=== PATIENT | male | born 1980 | race African-American/Black ===

== ENCOUNTER 2017-09-14 22:36 | Emergency (ER) | payer OTHER ==
[2017-09-14 23:18] VITALS: TEMP 98.1; BMI 39.5
--- NOTE | 2017-09-15 00:59 | PDOC ---
History of Present Illness - General History Source: Patient Exam Limitations: No Limitations - History of Present Illness Initial Comments: 09/15/17 01:01 The patient is a year old male, with a significant past medical history of hypertension, who presents to the emergency department with complaint of pain and numbness to left arm since about 4PM yesterday with elevated blood pressure this morning. He states he is compliant with his daily medications. He denies chest pain, shortness of breath, headache and dizziness. He denies fever, chills, nausea, vomit, diarrhea and constipation. He denies dysuria, frequency, urgency and hematuria. Allergies: NKDA Social history: Pt denies tobacco and illicit drug use <Melissa Humphrey - Last Filed: 09/15/17 01:01> - General History Source: Patient <Wes Finnegan - Last Filed: 09/15/17 04:05> - General Chief Complaint: Blood Pressure Problem Stated Complaint: BLOOD PRESSURE PROBLEM Time Seen by Provider: 09/15/17 00:55 Past History <Melissa Humphrey - Last Filed: 09/15/17 01:01> - Past Medical History HTN: Yes - Suicide/Smoking/Psychosocial Hx Smoking History: Never smoked Have you smoked in the past 12 months: No Information on smoking cessation initiated: No Hx Alcohol Use: No Drug/Substance Use Hx: No Substance Use Type: None <Wes Finnegan - Last Filed: 09/15/17 04:05> - Past Medical History Allergies/Adverse Reactions: Allergies Allergy/AdvReac Type Severity Reaction Status Date / Time No Known Drug Allergies Allergy Verified 09/15/17 02:19 SEAFOOD Allergy Rash Uncoded 09/15/17 01:36 Home Medications: Ambulatory Orders Hydrochlorothiazide [Hctz -] 25 mg PO DAILY 05/31/14 Lisinopril [Prinivil -] 40 mg PO DAILY 05/31/14 Pnv/Iron,Carb/Om-3/FA/Fat 1 [Multivitamin with Minerals Cap] 1 each PO DAILY 10/13 Dexamethasone [Decadron] 4 mg PO DAILY #2 tablet 08/22/15 Azithromycin [Zithromax Z-VINCENT (5 DAYS) -] 250 mg PO ASDIR #6 tablet 10/28/15 Guaifenesin AC [Robitussin AC -] 10 ml PO Q6H PRN #118 ml 10/28/15 Review of Systems - Review of Systems Able to Perform ROS?: Yes Comments:: 09/15/17 01:02 CONSTITUTIONAL: Absent: fever, chills, diaphoresis, generalized weakness, malaise, loss of appetite HEENT: Absent: rhinorrhea, nasal congestion, throat pain, throat swelling, difficulty swallowing, mouth swelling, ear pain, eye pain, visual Changes CARDIOVASCULAR: (+) elevated BP. Absent: chest pain, syncope, palpitations, irregular heart rate , lightheadedness, peripheral edema RESPIRATORY: Absent: cough, shortness of breath, dyspnea with exertion, orthopnea, wheezing, stridor, hemoptysis GASTROINTESTINAL: Absent: abdominal pain, abdominal distension, nausea, vomiting, diarrhea, constipation, melena, hematochezia GENITOURINARY: Absent: dysuria, frequency, urgency, hesitancy, hematuria, flank pain, genital pain MUSCULOSKELETAL: (+) left arm pain and numbness. Absent: arthralgia, joint swelling SKIN: Absent: rash, itching, pallor HEMATOLOGIC/IMMUNOLOGIC: Absent: easy bleeding, easy bruising, lymphadenopathy, frequent infections ENDOCRINE: Absent: unexplained weight gain, unexplained weight loss, heat intolerance, cold intolerance NEUROLOGIC: Absent: headache, focal weakness or paresthesias, dizziness, unsteady gait, seizure, mental status changes, bladder or bowel incontinence PSYCHIATRIC: Absent: anxiety, depression, suicidal or homicidal ideation, hallucinations. <Melissa Humphrey - Last Filed: 09/15/17 01:01> *Physical Exam - Vital Signs Last Vital Signs Temp Pulse Resp BP Pulse Ox 98.1 F 101 H 20 164/126 97 09/14/17 23:15 09/14/17 23:15 09/14/17 23:15 09/14/17 23:15 09/14/17 23:15 - Physical Exam Comments: 09/15/17 01:02 GENERAL: (+) obese, Awake and alert. No acute distress. HEENT: Normocephalic, atraumatic. PERRLA, EOMI. No conjunctival pallor. Sclera are non- icteric. Moist mucous membranes. Oropharynx is clear. NECK: Supple. Full ROM. No JVD. Carotid pulses 2+ and symmetric, without bruits. No thyromegaly. No lymphadenopathy. CARDIOVASCULAR: Regular rate and rhythm. No murmurs, rubs, or gallops. Distal pulses are 2+ and symmetric. PULMONARY: No evidence of respiratory distress. Lungs clear to auscultation bilaterally. No wheezing, rales or rhonchi. ABDOMINAL: Soft. Non-tender. Non-distended. No rebound or guarding. No organomegaly. Normoactive bowel sounds. MUSCULOSKELETAL Normal range of motion at all joints. No bony deformities or tenderness. No CVA tenderness. EXTREMITIES: No cyanosis. No clubbing. No edema. No calf tenderness. SKIN: Warm and dry. Normal capillary refill. No rashes. No jaundice. NEUROLOGICAL: Alert, awake, appropriate. Cranial nerves 2-12 intact. Normoreflexic in the upper and lower extremities. Normal speech. Toes are down-going bilaterally. Gait is normal without ataxia. PSYCHIATRIC: Cooperative. Good eye contact. Appropriate mood and affect. <Melissa Humphrey - Last Filed: 09/15/17 01:01> - Vital Signs Last Vital Signs Temp Pulse Resp BP Pulse Ox 98.1 F 101 H 20 164/126 97 09/14/17 23:15 09/14/17 23:15 09/14/17 23:15 09/14/17 23:15 09/14/17 23:15 <Wes Finnegan - Last Filed: 09/15/17 04:05> ED Treatment Course - LABORATORY CBC & Chemistry Diagram: 09/15/17 01:31 09/15/17 01:31 <Wes Finnegan - Last Filed: 09/15/17 04:05> Medical Decision Making - Medical Decision Making 09/15/17 04:04 Dr. Finnegan: The scribe's documentation has been prepared under my direction and personally reviewed by me in its entirery. I confirm that the note above accurately reflects all work, treatment, procedures, and medical decision making performed by me. BP has improved t to 140/100. Pt feels better. Labs are stable. Pt to be discharged to follow up with his pcp. <Wes Finnegan - Last Filed: 09/15/17 04:05> *DC/Admit/Observation/Transfer - Attestations Scribe Attestion: 09/15/17 01:03 Documentation prepared by Melissa Humphrey, acting as medical records auditor for Wes Finnegan DO <Melissa Humphrey - Last Filed: 09/15/17 01:01> - Discharge Dispostion Admit: No <Wes Finnegan - Last Filed: 09/15/17 04:05> Diagnosis at time of Disposition: Hypertension Qualifiers: Hypertension type: unspecified Qualified Code(s): I10 - Essential (primary) hypertension - Discharge Dispostion Disposition: HOME Condition at time of disposition: Stable - Referrals Referrals: Samantha Gant MD [Staff Physician] - - Patient Instructions Printed Discharge Instructions: DI for High Blood Pressure, How to Monitor Your Blood Pressure at Home Additional Instructions: Please follow up with your primary care doctor today for re-evaluation of blood pressure and medication. Return if any problems. - Post Discharge Activity Forms/Work/School Notes: Back to Work
[2017-09-15 01:54] LABS: BASO % 0.8 % (0-2.0); EOS % 1.3 % (0-4.5); HEMATOCRIT 44.8 % (35.4-49); HEMOGLOBIN 15.7 GM/dL (11.7-16.9); LYMPH % 15.4 % (8-40); MCH 29.4 pg (25.7-33.7); MEAN CELL VOLUME 84.2 fl (80-96); MEAN PLT VOLUME 7.8 fl (7.5-11.1); MONO % 15.9 % (3.8-10.2); NEUT % 66.6 % (42.8-82.8); PLATELET COUNT 336 K/MM3 (134-434); RBC 5.32 M/mm3 (4.00-5.60); RDW 13.2 % (11.9-15.9)
[2017-09-15 02:08] LABS: INR 1.26 (0.82-1.09); PROTHROMBIN TIME (PATIENT) 14.2 SEC (9.98-11.88)
[2017-09-15] MEDS ORDERED: hydrALAZINE HCL 20 MG/ML VIAL IVPUSH ONE (02:11)
[2017-09-15 02:18] LABS: ALBUMIN 3.4 g/dl (3.4-5.0); ANION GAP 9 (8-16); BLOOD UREA NITROGEN 12 mg/dL (7-18); CALCIUM 8.7 mg/dL (8.5-10.1); CHLORIDE 99 mmol/L (98-107); CO2 31 mmol/L (21-32); CREATININE 1.2 mg/dL (0.7-1.3); GLUCOSE,RANDOM 93 mg/dL (74-106); LIPASE 144 U/L (73-393); MAGNESIUM 1.9 mg/dL (1.8-2.4); POTASSIUM 3.2 mmol/L (3.5-5.1); SGOT/AST 29 U/L (15-37); SGPT/ALT 37 U/L (12-78); SODIUM 139 mmol/L (136-145)
[2017-09-15 02:23] LABS: ALK PHOS 128 U/L (45-117); BILIRUBIN,TOTAL 0.3 mg/dL (0.2-1.0); N-TERMINAL BNP 55.36 pg/ml (5-125); TOT PROT 8.2 g/dl (6.4-8.2)
[2017-09-15] MEDS ORDERED: POTASSIUM CHLORIDE TABS 20 MEQ TABLET.ER (FP) PO ONE ×2 (02:35→02:42)
[2017-09-15] MEDS ORDERED: hydrALAZINE HCL 20 MG/ML VIAL ONE (02:42)
[2017-09-15 03:54] VITALS: PULSE 89
[2017-09-15 04:05] VITALS: BP 143/103
--- NOTE | 2017-09-15 10:57 | EKG ---
Test Reason : Blood Pressure : / mmHG Vent. Rate : 088 BPM Atrial Rate : 088 BPM P-R Int : 184 ms QRS Dur : 106 ms QT Int : 392 ms P-R-T Axes : 026 007 017 degrees QTc Int : 474 ms NORMAL SINUS RHYTHM POSSIBLE LEFT ATRIAL ENLARGEMENT LEFT VENTRICULAR HYPERTROPHY NONSPECIFIC T WAVE ABNORMALITY PROLONGED QT ABNORMAL ECG WHEN COMPARED WITH ECG OF 13-AUG-2009 12:51, NO SIGNIFICANT CHANGE WAS FOUND Confirmed by NGHIA SANDERSON, JACKSON ([id number]) on 09/15/2017 10:57:21 AM Referred By: Confirmed By:JACKSON AGRAWAL MD
== END 2017-09-15 04:35 | disposition home or self-care (01) ==
LOC: JER 22:36
DX: I10 Essential (primary) hypertension (principal)
CPT/HCPCS: 36415; 71046-TC; 80053; 82550; 82553; 83690; 83735; 83880; 84484; 85025; 85610; 93005; 93010; 99282-25

== ENCOUNTER 2017-10-15 22:57 | Emergency (ER) | payer OTHER ==
[2017-10-15 23:03] VITALS: BMI 37.5
--- NOTE | 2017-10-16 00:38 | PDOC ---
History of Present Illness - General History Source: Patient Exam Limitations: No Limitations - History of Present Illness Initial Comments: 10/16/17 01:14 The patient is a 37 year old male with a significant PMH of HTN who presents to the emergency department with 3 days of cough and sore throat and 1 day of fever (T.max 102F). The patient reports his sore throat is aggravated by coughing and swallowing. He also reports poor PO intake over the past 3 days, only eating chicken noodle soup today. He reports taking Tylenol cold & flu today to some relief. The patient denies chest pain, shortness of breath, headache and dizziness. Denies fever, chills, nausea, vomit, diarrhea and constipation. Denies dysuria, frequency, urgency and hematuria. Allergies: NKDA, Seafood Past surgical history: None reported. Social history: No reported cigarette, alcohol, or drug use. PCP: Not on Staff. <Todd Pimentel - Last Filed: 10/16/17 01:14> <Zandra Bentley - Last Filed: 10/16/17 20:50> - General Chief Complaint: Respiratory Stated Complaint: PAIN Time Seen by Provider: 10/16/17 00:32 Past History <Todd Pimentel - Last Filed: 10/16/17 01:14> - Past Medical History COPD: No HTN: Yes - Suicide/Smoking/Psychosocial Hx Smoking History: Never smoked Have you smoked in the past 12 months: No Hx Alcohol Use: No Drug/Substance Use Hx: No Substance Use Type: None <Zandra Bentley - Last Filed: 10/16/17 20:50> - Past Medical History Allergies/Adverse Reactions: Allergies Allergy/AdvReac Type Severity Reaction Status Date / Time No Known Drug Allergies Allergy Verified 10/15/17 23:01 SEAFOOD Allergy Rash Uncoded 10/15/17 23:01 Home Medications: Ambulatory Orders Hydrochlorothiazide [Hctz -] 25 mg PO DAILY 05/31/14 Lisinopril [Prinivil -] 40 mg PO DAILY 05/31/14 Pnv/Iron,Carb/Om-3/FA/Fat 1 [Multivitamin with Minerals Cap] 1 each PO DAILY 10/13 Oseltamivir Phosphate [Tamiflu -] 75 mg PO BID #10 capsule 10/16/17 Review of Systems - Review of Systems Able to Perform ROS?: Yes Comments:: 10/16/17 01:14 GENERAL/CONSTITUTIONAL: (+)Fever. No chills. No weakness. HEAD, EYES, EARS, NOSE AND THROAT: (+) Sore throat. No change in vision. No ear pain or discharge. No sore throat. CARDIOVASCULAR: No chest pain or shortness of breath. RESPIRATORY: (+) Cough. No wheezing, or hemoptysis. GASTROINTESTINAL: No nausea, vomiting, diarrhea or constipation. GENITOURINARY: No dysuria, frequency, or change in urination. MUSCULOSKELETAL: No joint or muscle swelling or pain. No neck or back pain. SKIN: No rash NEUROLOGIC: No headache, vertigo, loss of consciousness, or change in strength/ sensation. ENDOCRINE: No increased thirst. No abnormal weight change. HEMATOLOGIC/LYMPHATIC: No anemia, easy bleeding, or history of blood clots. ALLERGIC/IMMUNOLOGIC: No hives or skin allergy. <Todd Pimentel - Last Filed: 10/16/17 01:14> *Physical Exam - Vital Signs Last Vital Signs Temp Pulse Resp BP Pulse Ox 99.8 F H 117 H 22 154/100 97 10/15/17 22:58 10/15/17 22:58 10/15/17 22:58 10/15/17 22:58 10/15/17 22:58 - Physical Exam Comments: 10/16/17 01:14 GENERAL: Awake, alert, and fully oriented, in no acute distress HEAD: No signs of trauma EYES: PERRLA, EOMI, sclera anicteric, conjunctiva clear ENT: (+) Erythematous oropharynx without exudates. Auricles normal inspection, hearing grossly normal, nares patent. Moist mucosa NECK: Normal ROM, supple, no lymphadenopathy, JVD, or masses LUNGS: Breath sounds equal, clear to auscultation bilaterally. No wheezes, and no crackles HEART: (+) Tachycardic. Regular rhythm, normal S1 and S2, no murmurs, rubs or gallops ABDOMEN: Soft, nontender, normoactive bowel sounds. No guarding, no rebound. No masses EXTREMITIES: Normal range of motion, no edema. No clubbing or cyanosis. No cords, erythema, or tenderness NEUROLOGICAL: Cranial nerves II through XII grossly intact. Normal speech, normal gait SKIN: Warm, Dry, normal turgor, no rashes or lesions noted. <Todd Pimentel - Last Filed: 10/16/17 01:14> - Vital Signs Last Vital Signs Temp Pulse Resp BP Pulse Ox 99.8 F H 117 H 22 154/100 97 10/15/17 22:58 10/15/17 22:58 10/15/17 22:58 10/15/17 22:58 10/15/17 22:58 <Zandra Bentley - Last Filed: 10/16/17 20:50> ED Treatment Course - Medications Given in the ED: ED Medications Discontinued Medications Generic Name Dose Route Start Last Admin Trade Name Freq PRN Reason Stop Dose Admin Valsartan 80 mg 10/16/17 00:44 10/16/17 00:55 Diovan - PO 10/16/17 00:45 80 mg ONCE ONE Administration <Todd Pimentel - Last Filed: 10/16/17 01:14> Medical Decision Making - Medical Decision Making 10/16/17 20:49 Pt has normal step culture and normal CXR and he will be treated for flu (we have no rapid flu tests left in the hospital and we are treating empirically. <Zandra Bentley - Last Filed: 10/16/17 20:50> *DC/Admit/Observation/Transfer - Attestations Scribe Attestion: 10/16/17 01:14 Documentation prepared by Todd Pimentel, acting as medical technologist prn for Zandra Bentley MD. <Todd Pimentel - Last Filed: 10/16/17 01:14> - Discharge Dispostion Admit: No <Zandra Bentley - Last Filed: 10/16/17 20:50> Diagnosis at time of Disposition: Influenza - Discharge Dispostion Disposition: HOME Condition at time of disposition: Stable - Prescriptions Prescriptions: Oseltamivir Phosphate [Tamiflu -] 75 mg PO BID #10 capsule - Referrals Referrals: ON STAFF,NOT [Primary Care Provider] - - Patient Instructions Printed Discharge Instructions: Influenza - Post Discharge Activity Forms/Work/School Notes: Back to Work
[2017-10-16] MEDS ORDERED: VALSARTAN 80 MG TABLET (UD) PO ONE (00:44)
[2017-10-16] MEDS ORDERED: VALSARTAN 80 MG TABLET (UD) ONE (00:51)
[2017-10-16] MEDS ORDERED: OSELTAMIVIR PHOSPHATE 75 MG CAPSULE PO ONE (02:40)
[2017-10-16] MEDS ORDERED: OSELTAMIVIR PHOSPHATE 75 MG CAPSULE ONE (02:43)
[2017-10-16 02:55] VITALS: BP 138/71; PULSE 93; TEMP 98.1
== END 2017-10-16 03:02 | disposition home or self-care (01) ==
LOC: JER 22:57
DX: J11.1 Influenza due to unidentified influenza virus with other respiratory manifestations (principal)
CPT/HCPCS: 71046-TC-FY; 87070; 87430; 99282-25

== ENCOUNTER 2018-02-12 01:02 | Emergency (ER) | payer OTHER ==
[2018-02-12] MEDS ORDERED: DIPHTH,PERTUSS(ACELL),TET 0.5 ML DISP.SYRIN IM ONE (02:09)
[2018-02-12 02:13] VITALS: BP 148/100; PULSE 78; TEMP 98; BMI 36.9
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
== END 2018-02-12 02:25 | disposition home or self-care (01) ==
LOC: JER 01:02
PROC: 3E0234Z Introduction of Serum, Toxoid and Vaccine into Muscle, Percutaneous Approach (ICD-10-PCS; principal; 2018-02-12)
DX: S51.851A Open bite of right forearm, initial encounter (principal); W50.3XXA Accidental bite by another person, initial encounter; Y93.89 Activity, other specified; Y92.118 Other place in children's home and orphanage as the place of occurrence of the external cause; Y99.0 Civilian activity done for income or pay; I10 Essential (primary) hypertension
CPT/HCPCS: 90715; 99281-25

== ENCOUNTER 2018-03-24 22:30 | Emergency (ER) | payer OTHER ==
[2018-03-24] MEDS ORDERED: AMOX TR/POT CLAV 875MG/125MG TABLETS (FP) PO ONE (22:37)
[2018-03-24 22:38] VITALS: BP 147/112; PULSE 102; TEMP 99.4; BMI 36.9
[2018-03-24] MEDS ORDERED: AMOX TR/POT CLAV 875MG/125MG TABLETS (FP) ONE (22:40)
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
== END 2018-03-24 22:53 | disposition home or self-care (01) ==
LOC: FER 22:30
DX: S41.051A Open bite of right shoulder, initial encounter (principal); Y04.1XXA Assault by human bite, initial encounter; Y93.89 Activity, other specified; Y92.15 Reform school as the place of occurrence of the external cause; Y99.0 Civilian activity done for income or pay; I10 Essential (primary) hypertension
CPT/HCPCS: 99281-25

== ENCOUNTER 2018-10-21 13:01 | Emergency (ER) | payer OTHER ==
[2018-10-21 13:09] VITALS: TEMP 98.6; BMI 38.4
--- NOTE | 2018-10-21 13:24 | PDOC ---
History of Present Illness - General Chief Complaint: Blood Pressure Problem Stated Complaint: HIGH BLOOD PRESSURE Time Seen by Provider: 10/21/18 13:24 History Source: Patient Exam Limitations: No Limitations - History of Present Illness Initial Comments: 10/21/18 13:27 38 year old male with PMH HTN, MARY ANN, headaches (2X/week) presented to ED for HTN episode today. Pt stated he developed a headache to his forehead, wrapping around like a band, with sensitivity to light. He stated this headache feels similar to his headaches except that it is more intense, currently 7/10. He admitted to bilateral generalized finger tingling, which has resolved. He denied chest pain, shortness of breath, cough, back pain, blurry vision, abdominal pain, blood in urine. Allergies: lisinopril Past History - Past Medical History Allergies/Adverse Reactions: Allergies Allergy/AdvReac Type Severity Reaction Status Date / Time lisinopril [From Prinivil] Allergy Swelling Verified 10/21/18 13:07 No Known Drug Allergies Allergy Verified 10/21/18 13:07 SEAFOOD Allergy Rash Uncoded 10/21/18 13:07 Home Medications: Ambulatory Orders Hydrochlorothiazide [Hctz -] 25 mg PO DAILY 05/31/14 Amlodipine Besylate [Norvasc -] 10 mg PO DAILY 02/12/18 COPD: No HTN: Yes - Immunization History Td Vaccination: Yes (02/14) Immunization Up to Date: Yes - Suicide/Smoking/Psychosocial Hx Smoking History: Never smoked Have you smoked in the past 12 months: No Hx Alcohol Use: No Drug/Substance Use Hx: No Substance Use Type: None Review of Systems - Review of Systems Able to Perform ROS?: Yes Comments:: 10/21/18 14:09 General: denied fever, chills, night sweats, generalized weakness. HEENT: denied sore throat, rhinorrhea, ear pain. Heart: denied chest pain, palpitations, syncope, diaphoresis. Respiratory: denied shortness of breath, cough, sputum production, hemoptysis. Abdomen: denied abdominal pain, nausea, vomiting, diarrhea, constipation, blood in stool. : denied dysuria, increased urinary frequency, hematuria, urinary incontinence , flank pain. Back: denied back pain. Musculoskeletal: denied joint pain, muscle pain, joint swelling. Neurological: admitted to headache, tingling. denied dizziness, numbness, weakness. Skin: denied rash, laceration, abrasion. *Physical Exam - Vital Signs Last Vital Signs Temp Pulse Resp BP Pulse Ox 98.6 F 107 H 18 151/116 H 95 10/21/18 13:08 10/21/18 13:08 10/21/18 13:08 10/21/18 13:08 10/21/18 13:08 - Physical Exam Comments: 10/21/18 14:10 Constitutional: Well-nourished, Well-developed, appearing stated age. HEENT: head is normocephalic, atraumatic. EOMI. PERRLA. Neck: supple. Full ROM. Heart: regular rhythm. no murmurs, rubs or gallops. Lungs: clear to auscultation bilaterally. no crackles, rhonchi or wheezing. no stridor. Abdomen: soft, nontender. normal bowel sounds. no rebound, guarding, masses. Extremities: Peripheral pulses intact. No lower extremity edema. Neurological: Alert. Oriented x3. CN2-12 intact. 5/5 strength all extremities. Full sensation all extremities and bilateral face. Romberg negative. Finger to nose normal. Gait normal. Psych: awake, alert, oriented x3. Follows commands. Answers questions appropriately. Moderate Sedation - Procedure Monitoring Vital Signs: Procedure Monitoring Vital Signs Temperature 98.6 F 10/21/18 13:08 Pulse Rate 107 H 10/21/18 13:08 Respiratory Rate 18 10/21/18 13:08 Blood Pressure 151/116 H 10/21/18 13:08 O2 Sat by Pulse Oximetry (%) 95 10/21/18 13:08 ED Treatment Course - LABORATORY CBC & Chemistry Diagram: 10/21/18 13:48 10/21/18 13:48 Medical Decision Making - Medical Decision Making 10/21/18 14:10 38 year old male with above PMH presented to ED for HTN associated with headache and bilateral tingling to fingers. Initial Vital Signs Temp Pulse Resp BP Pulse Ox 98.6 F 107 H 18 151/116 H 95 10/21/18 13:08 10/21/18 13:08 10/21/18 13:08 10/21/18 13:08 10/21/18 13:08 Afebrile. Tachycardia. No tachypnea. Hypertension. No hypoxia in room air. o Labs ordered: CBC, CMP, troponin, BNP, UA, coags, T/S c Imaging ordered: CXR g Medications ordered: tylenol EKG performed at 1702: rate 97, regular rhythm, normal axis, normal intervals, nonspecific ST changes. 10/21/18 14:44 CBC WBC 10.0 K/mm3 (4.0-10.0) 10/21/18 13:48 RBC 5.38 M/mm3 (4.00-5.60) 10/21/18 13:48 Hgb 16.5 GM/dL (11.7-16.9) 10/21/18 13:48 Hct 46.5 % (35.4-49) 10/21/18 13:48 MCV 86.4 fl (80-96) 10/21/18 13:48 MCH 30.8 pg (25.7-33.7) 10/21/18 13:48 MCHC 35.6 g/dl (32.0-35.9) 10/21/18 13:48 RDW 13.3 % (11.9-15.9) 10/21/18 13:48 Plt Count 363 K/MM3 (134-434) 10/21/18 13:48 MPV 8.4 fl (7.5-11.1) 10/21/18 13:48 Absolute Neuts (auto) 7.3 K/mm3 (1.5-8.0) 10/21/18 13:48 Neutrophils % 72.8 % (42.8-82.8) 10/21/18 13:48 Lymphocytes % 14.0 % (8-40) 10/21/18 13:48 Monocytes % 11.3 % (3.8-10.2) H 10/21/18 13:48 Eosinophils % 1.1 % (0-4.5) 10/21/18 13:48 Basophils % 0.8 % (0-2.0) 10/21/18 13:48 Nucleated RBC % 0 % (0-0) 10/21/18 13:48 No leukocytosis. No anemia. CMP Sodium 134 mmol/L (136-145) L 10/21/18 13:48 Potassium 5.1 mmol/L (3.5-5.1) 10/21/18 13:48 Chloride 101 mmol/L (98-107) 10/21/18 13:48 Carbon Dioxide 27 mmol/L (21-32) 10/21/18 13:48 Anion Gap 6 MMOL/L (8-16) L 10/21/18 13:48 BUN 13 mg/dL (7-18) 10/21/18 13:48 Creatinine 1.2 mg/dL (0.55-1.3) 10/21/18 13:48 Creat Clearance w eGFR > 60 (>60) 10/21/18 13:48 Random Glucose 99 mg/dL (74-106) 10/21/18 13:48 Calcium 8.7 mg/dL (8.5-10.1) 10/21/18 13:48 Total Bilirubin 0.3 mg/dL (0.2-1) 10/21/18 13:48 AST 58 U/L (15-37) H 10/21/18 13:48 ALT 44 U/L (13-61) 10/21/18 13:48 Alkaline Phosphatase 136 U/L (45-117) H 10/21/18 13:48 Troponin I < 0.02 ng/ml (0.00-0.05) 10/21/18 13:48 B-Natriuretic Peptide 66.2 pg/ml (5-125) 10/21/18 13:48 Total Protein 8.9 g/dl (6.4-8.2) H 10/21/18 13:48 Albumin 3.6 g/dl (3.4-5.0) 10/21/18 13:48 Mild hyponatremia, not clinically significant. Cr 1.2 - At baseline Mild elevation of AST. 10/21/18 14:50 Vital Signs Temperature 98.6 F 10/21/18 13:08 Pulse Rate 107 H 10/21/18 13:08 Respiratory Rate 18 10/21/18 13:08 Blood Pressure y 142/97 10/21/18 14:30 O2 Sat by Pulse Oximetry (%) 95 10/21/18 13:08 Hypertension improving, prior to Tylenol given. Past blood pressure measurements in [facility] show diastolic HTN. Urine Test Results Urine Color Yellow 10/21/18 14:26 Urine Appearance Clear 10/21/18 14:26 Urine pH 6.0 (5.0-8.0) 10/21/18 14:26 Ur Specific B[place] 1.018 (1.010-1.035) 10/21/18 14:26 Urine Protein y 2+ (NEGATIVE) H 10/21/18 14:26 Urine Glucose (UA) Negative (NEGATIVE) 10/21/18 14:26 Urine Ketones Negative (NEGATIVE) 10/21/18 14:26 Urine Blood Negative (NEGATIVE) 10/21/18 14:26 Urine Nitrite Negative (NEGATIVE) 10/21/18 14:26 Urine Bilirubin Negative (<2.0 mg/dL) 10/21/18 14:26 Ur Leukocyte Esterase Negative (NEGATIVE) 10/21/18 14:26 Proteinuria. No blood in urine. - Pt informed of results, stated he knows of having protein in his urine 10/21/18 15:04 CT head report: no evidence of a focal intracranial lesion or hemorrhage seen. 10/21/18 16:52 CXR my interpretation: sharp costophrenic angles. no infiltrate. no cardiomegaly. no large pneumothorax. - Pending official interpretation 10/21/18 17:15 Pt reassessed, reported improvement in headache. Stated he would like to go home. Pt given copies of lab results and CT head report. Pt informed to follow up with PCP. Pt discharged. Vital Signs Pulse Rate 98 H 10/21/18 16:35 Blood Pressure 145/107 H 10/21/18 16:35 *DC/Admit/Observation/Transfer Diagnosis at time of Disposition: Headache - Discharge Dispostion Disposition: HOME Condition at time of disposition: Stable Decision to Admit order: No - Referrals - Patient Instructions Printed Discharge Instructions: DI for High Blood Pressure, How to Monitor Your Blood Pressure at Home Additional Instructions: You were seen today for headache and elevated blood pressure. Your lab work showed some protein in your urine. Follow up with your primary care doctor on this finding. Your head Cat-Scan was normal. Your chest X-ray was normal. Take all of your medication as you are prescribed. Measure your blood pressure morning and night every day, and keep a diary. Bring this diary to your primary care doctor appointment. Follow up with your primary care doctor in 1-2 days. Your care is not complete until you follow up. Return to the Emergency Department for increasing pain, numbness, weakness, facial drooping, chest pain, shortness of breath, blood in urine, abdominal pain , back pain or any other new, worsening or concerning symptoms. - Post Discharge Activity Forms/Work/School Notes: Back to Work
--- NOTE | 2018-10-21 13:41 | PDOC ---
Attending Attestation - HPI HPI: 10/21/18 14:26 The patient is a 38-year-old male with a past medical history significant for HTN and MARY ANN, is compliant with medication, presents to the emergency department with elevated BP. The patient reports he was at work when he started to have a frontal, wrapping, band-like headache, states he check his BP which was noted to be 178/111. The patient reports associated symptoms of bilateral finger tingling and photophobia. Denies blurry vision, chest pain, shortness of breath , abdominal pain. Allergies: lisinopril. PCP: Not on staff. - Medical Decision Making 10/21/18 14:26 Documentation prepared by Lanie Garcia, acting as medical care manager for Elyse Albarran MD. <Lanie Garcia - Last Filed: 10/21/18 14:26> - Resident Resident Name: CalinLeandra ruff - ED Attending Attestation I have performed the following: I have examined & evaluated the patient, The case was reviewed & discussed with the resident, I agree w/resident's findings & plan, Exceptions are as noted - Physicial Exam PE: 10/21/18 14:50 GENERAL: The patient is in no acute distress. HEAD: Normal EYES: PERRLA, EOMI LUNGS: Breath sounds equal, clear to auscultation bilaterally. No wheezes, and no crackles. HEART:Regular rate and rhythm, normal S1 and S2 without murmur, rub or gallop. ABDOMEN: Soft, nontender, normoactive bowel sounds. No guarding, no rebound. No masses palpable. EXTREMITIES: Normal range of motion, no edema. NEUROLOGICAL: Cranial nerves II through XII grossly intact. Normal speech. No focal neurological deficits. SKIN: Warm, Dry, normal turgor, no rashes or lesions noted. - Medical Decision Making 10/21/18 14:50 Laboratory Tests 10/21/18 10/21/18 10/21/18 13:48 13:48 13:48 WBC 10.0 Hgb 16.5 Hct 46.5 Plt Count 363 INR 1.15 H BUN 13 Creatinine 1.2 Troponin I < 0.02 10/21/18 15:54 CT head - negative for acute intracranial pathology Pt reports that his headache has improved Will plan to discharge to home Follow up with PMD in the [place] for medication adjustment <Elyse Albarran - Last Filed: 10/22/18 09:24>
[2018-10-21 14:09] LABS: BASO % 0.8 % (0-2.0); EOS % 1.1 % (0-4.5); HEMATOCRIT 46.5 % (35.4-49); HEMOGLOBIN 16.5 GM/dL (11.7-16.9); MCH 30.8 pg (25.7-33.7); MCHC 35.6 g/dl (32.0-35.9); MEAN CELL VOLUME 86.4 fl (80-96); MEAN PLT VOLUME 8.4 fl (7.5-11.1); MONO % 11.3 % (3.8-10.2); NEUT % 72.8 % (42.8-82.8); PLATELET COUNT 363 K/MM3 (134-434); RBC 5.38 M/mm3 (4.00-5.60); RDW 13.3 % (11.9-15.9)
[2018-10-21 14:10] LABS: INR 1.15 (0.83-1.09); PROTHROMBIN TIME (PATIENT) 13.6 SEC (9.7-13.0)
[2018-10-21 14:35] LABS: ALBUMIN 3.6 g/dl (3.4-5.0); ALK PHOS 136 U/L (45-117); ANION GAP 6 MMOL/L (8-16); BILIRUBIN,TOTAL 0.3 mg/dL (0.2-1); BLOOD UREA NITROGEN 13 mg/dL (7-18); CALCIUM 8.7 mg/dL (8.5-10.1); CHLORIDE 101 mmol/L (98-107); CO2 27 mmol/L (21-32); CREATININE 1.2 mg/dL (0.55-1.3); GLUCOSE,RANDOM 99 mg/dL (74-106); N-TERMINAL BNP 66.2 pg/ml (5-125); POTASSIUM 5.1 mmol/L (3.5-5.1); SGOT/AST 58 U/L (15-37); SGPT/ALT 44 U/L (13-61); SODIUM 134 mmol/L (136-145); TOT PROT 8.9 g/dl (6.4-8.2)
[2018-10-21] MEDS ORDERED: ACETAMINOPHEN 325 MG TABLET (FP) PO ONE (14:50)
[2018-10-21 14:51] LABS: URINE APPEARANCE CLEAR; URINE BILIRUBIN NEGATIVE (<2.0 mg/dL); URINE COLOR YELLOW; URINE GLUCOSE (UA) NEGATIVE (NEGATIVE); URINE KETONE NEGATIVE (NEGATIVE); URINE LEUK ESTERASE NEGATIVE (NEGATIVE); URINE NITRITE NEGATIVE (NEGATIVE); URINE PROTEIN 2+ (NEGATIVE)
[2018-10-21 15:24] LABS: URINE MUCUS RARE
[2018-10-21] MEDS ORDERED: ACETAMINOPHEN 325 MG TABLET (FP) ONE (16:36)
[2018-10-21 17:27] VITALS: BP 145/107; PULSE 98
--- NOTE | 2018-10-22 22:05 | EKG ---
Test Reason : Blood Pressure : / mmHG Vent. Rate : 097 BPM Atrial Rate : 097 BPM P-R Int : 158 ms QRS Dur : 098 ms QT Int : 370 ms P-R-T Axes : 034 015 028 degrees QTc Int : 469 ms NORMAL SINUS RHYTHM POSSIBLE LEFT ATRIAL ENLARGEMENT LEFT VENTRICULAR HYPERTROPHY ABNORMAL ECG WHEN COMPARED WITH ECG OF 15-SEP-2017 01:11, NO SIGNIFICANT CHANGE WAS FOUND Confirmed by LYDIA ESPINO MD ([id number]) on 10/22/2018 10:05:00 PM Referred By: Confirmed By:LYDIA ESPINO MD
== END 2018-10-21 17:28 | disposition home or self-care (01) ==
LOC: JER 13:01
DX: R51 Headache (principal); I10 Essential (primary) hypertension; G47.33 Obstructive sleep apnea (adult) (pediatric)
CPT/HCPCS: 36415; 70450-TC; 71046-TC-FY; 80053; 81003; 81015; 83880; 84484; 85025; 85610; 85730; 93005; 93010; 99282-25

== ENCOUNTER 2018-11-17 19:44 | Emergency (ER) | payer OTHER ==
[2018-11-17] MEDS ORDERED: CYCLOBENZAPRINE HCL 10 MG TABLET (FP) PO ONE (20:00)
[2018-11-17] MEDS ORDERED: KETOROLAC TROMETHAMINE 60 MG/2 ML VIAL IM ONE (20:00)
--- NOTE | 2018-11-17 20:00 | PDOC ---
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
[2018-11-17 20:09] VITALS: BP 132/117; PULSE 107; TEMP 98.5; BMI 38.4
[2018-11-17] MEDS ORDERED: KETOROLAC TROMETHAMINE 60 MG/2 ML VIAL ONE (20:12)
[2018-11-17] MEDS ORDERED: CYCLOBENZAPRINE HCL 10 MG TABLET (FP) ONE (20:12)
--- NOTE | 2018-11-17 20:59 | PDOC ---
History of Present Illness - General Chief Complaint: Back Pain Stated Complaint: BACK PAIN Time Seen by Provider: 11/17/18 19:56 History Source: Patient Exam Limitations: No Limitations - History of Present Illness Initial Comments: 11/17/18 21:07 The patient is a 38-year-old male with past medical history of HTN, who presents to the ER with low back pain. Patient works at [employer]. 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 While performing the restrained he felt a strain in his left lower back. He states that it hurts to move. Denies numbness and tingling to the extremities, fall, weakness to the extremities, saddle anesthesia and bladder bowel incontinence. Past History - Travel Traveled outside of the country in the last 30 days: No Close contact w/someone who was outside of country & ill: No - Past Medical History Allergies/Adverse Reactions: Allergies Allergy/AdvReac Type Severity Reaction Status Date / Time lisinopril [From Prinivil] Allergy Swelling Verified 11/17/18 19:58 No Known Drug Allergies Allergy Verified 11/17/18 19:58 SEAFOOD Allergy Rash Uncoded 11/17/18 19:58 Home Medications: Ambulatory Orders Hydrochlorothiazide [Hctz -] 25 mg PO DAILY 05/31/14 Amlodipine Besylate [Norvasc -] 10 mg PO DAILY 02/12/18 Cyclobenzaprine HCl [Flexeril -] 10 mg PO HS #10 tablet 11/17/18 Ibuprofen 800 mg PO TID #30 tablet 11/17/18 COPD: No HTN: Yes - Immunization History Td Vaccination: Yes (02/14) Immunization Up to Date: Yes - Suicide/Smoking/Psychosocial Hx Smoking History: Never smoked Have you smoked in the past 12 months: No Information on smoking cessation initiated: No Hx Alcohol Use: No Drug/Substance Use Hx: No Substance Use Type: None Review of Systems - Review of Systems Able to Perform ROS?: Yes Comments:: 11/17/18 21:09 CONSTITUTIONAL: Absent: fever, chills, diaphoresis, generalized weakness, malaise, loss of appetite GASTROINTESTINAL: Absent: abdominal pain, abdominal distension, nausea, vomiting, diarrhea, constipation, melena, hematochezia GENITOURINARY: Absent: dysuria, frequency, urgency, hesitancy, hematuria, flank pain, genital pain MUSCULOSKELETAL: Present: low back pain Absent: arthralgia, joint swelling SKIN: Absent: rash, itching, pallor NEUROLOGIC: Absent: headache, focal weakness or paresthesias, dizziness, unsteady gait, seizure, mental status changes, bladder or bowel incontinence PSYCHIATRIC: Absent: anxiety, depression, suicidal or homicidal ideation, hallucinations. Is the patient limited French proficient: No *Physical Exam - Vital Signs Last Vital Signs Temp Pulse Resp BP Pulse Ox 98.5 F 107 H 20 132/117 H 100 11/17/18 19:55 11/17/18 19:55 11/17/18 19:55 11/17/18 19:55 11/17/18 19:55 - Physical Exam Comments: 11/17/18 21:09 GENERAL: Well developed, well nourished. Awake and alert. No acute distress. MUSCULOSKELETAL TTP of the L paraspinous muscles, L3-L5, with palpable knot consistent with muscle spasm. (-) midline tenderness, (-) straight leg raise b/l. Normal range of motion at all joints. No bony deformities or tenderness. No CVA tenderness. EXTREMITIES: No cyanosis. No clubbing. No edema. No calf tenderness. SKIN: Warm and dry. Normal capillary refill. No rashes. No jaundice. NEUROLOGICAL: Alert, awake, appropriate. Cranial nerves 2-12 intact. No deficits to light touch and temperature in face, upper extremities and lower extremities. No motor deficits in the in face, upper extremities and lower extremities. Normoreflexic in the upper and lower extremities. Normal speech. Toes are down- going bilaterally. Gait is normal without ataxia. PSYCHIATRIC: Cooperative. Good eye contact. Appropriate mood and affect. Moderate Sedation - Procedure Monitoring Vital Signs: Procedure Monitoring Vital Signs Temperature 98.5 F 11/17/18 19:55 Pulse Rate 107 H 11/17/18 19:55 Respiratory Rate 20 11/17/18 19:55 Blood Pressure 132/117 H 11/17/18 19:55 O2 Sat by Pulse Oximetry (%) 100 11/17/18 19:55 ED Treatment Course - Medications Given in the ED: ED Medications Discontinued Medications Generic Name Dose Route Start Last Admin Trade Name Freq PRN Reason Stop Dose Admin Cyclobenzaprine HCl 10 mg 11/17/18 20:00 11/17/18 20:17 Flexeril - PO 11/17/18 20:01 10 mg ONCE ONE Administration Ketorolac Tromethamine 60 mg 11/17/18 20:00 11/17/18 20:18 Toradol Injection - IM 11/17/18 20:01 60 mg ONCE ONE Administration Medical Decision Making - Medical Decision Making 11/17/18 21:08 -Pt with TTP of the L paraspinous muscles, L3-L5, with palpable knot consistent with muscle spasm. (-) midline tenderness, (-) straight leg raise b/l. -No trauma, or fever. No saddle anesthesia or bladder/bowel incontinence. No CVA tenderness. -Pt is neurologically intact on exam with no focal findings. -Toradol given with relief of symptoms -DC home. Ortho follow up given for if symptoms do not resolve. -I discussed the physical exam findings, ancillary test results and final diagnoses with the patient. I answered all of the patient's questions. The patient was satisfied with the care received and felt comfortable with the discharge plan and treatment plan. The Patient agrees to follow up with the primary care physician/specialist within 24-72 hours. Return precautions were given. *DC/Admit/Observation/Transfer Diagnosis at time of Disposition: Low back pain Qualifiers: Chronicity: acute Back pain laterality: bilateral Sciatica presence: without sciatica Qualified Code(s): M54.5 - Low back pain - Discharge Dispostion Disposition: HOME Condition at time of disposition: Stable Decision to Admit order: No - Prescriptions Prescriptions: Cyclobenzaprine HCl [Flexeril -] 10 mg PO HS #10 tablet Ibuprofen 800 mg PO TID #30 tablet - Referrals Referrals: Kane Contreras MD [Staff Physician] - - Patient Instructions Printed Discharge Instructions: DI for Low Back Pain Additional Instructions: You have low back pain due to a muscle spasm. Please take ibuprofen 800 mg 3 times a day not to exceed 3000 mg a day. You were also prescribed Flexeril. Please take this medication every 8 hours for the first day. Then take the medication before you go to bed. Do not drive after taking this medication as it may make you sleepy. You may use warm compresses on your back to help with her symptoms. Please follow-up with your primary care doctor. If your symptoms do not resolve in 3-5 days, follow-up with orthopedics. A referral has been provided for you. Return to the emergency department if you have worsening back pain, bladder or bowel incontinence, numbness and tingling in her legs, changes in the way you walk, or any new or worsening symptoms. - Post Discharge Activity Forms/Work/School Notes: Back to Work
== END 2018-11-17 21:12 | disposition home or self-care (01) ==
LOC: JER 19:44
PROC: 3E0233Z Introduction of Anti-inflammatory into Muscle, Percutaneous Approach (ICD-10-PCS; principal; 2018-11-17)
DX: M54.5 Low back pain (principal); M62.830 Muscle spasm of back; X50.0XXA Overexertion from strenuous movement or load, initial encounter; Y93.89 Activity, other specified; Y92.118 Other place in children's home and orphanage as the place of occurrence of the external cause; Y99.0 Civilian activity done for income or pay
CPT/HCPCS: 99281-25

== ENCOUNTER 2019-08-07 09:26 | Emergency (ER) | payer OTHER ==
[2019-08-07 09:46] VITALS: TEMP 98.3; BMI 29.0
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
[2019-08-07 11:55] VITALS: BP 164/91; PULSE 88
== END 2019-08-07 11:40 | disposition home or self-care (01) ==
LOC: JERFT 09:26
DX: S39.012A Strain of muscle, fascia and tendon of lower back, initial encounter (principal); S29.012A Strain of muscle and tendon of back wall of thorax, initial encounter; V43.52XA Car driver injured in collision with other type car in traffic accident, initial encounter; Y92.414 Local residential or business street as the place of occurrence of the external cause; Y93.89 Activity, other specified; Y99.8 Other external cause status; I10 Essential (primary) hypertension; K21.9 Gastro-esophageal reflux disease without esophagitis; Z88.8 Allergy status to other drugs, medicaments and biological substances; Z91.013 Allergy to seafood
CPT/HCPCS: 99281-25

== ENCOUNTER 2020-10-08 11:44 | Emergency (ER) | payer OTHER ==
[2020-10-08 11:55] VITALS: BMI 42.7
[2020-10-08] MEDS ORDERED: ONDANSETRON 4 MG/2 ML VIAL IVPUSH ONE (12:43)
[2020-10-08] MEDS ORDERED: ONDANSETRON 4 MG/2 ML VIAL ONE (13:04)
[2020-10-08 13:31] LABS: EOS % 2.1 % (0-4.5); HEMOGLOBIN 15.9 GM/dL (11.7-16.9); LYMPH % 16.9 % (8-40); MCH 30.1 pg (25.7-33.7); MCHC 35.2 g/dl (32.0-35.9); MEAN CELL VOLUME 85.3 fl (80-96); MEAN PLT VOLUME 8.5 fl (7.5-11.1); MONO % 15.7 % (3.8-10.2); NEUT % 64.3 % (42.8-82.8); PLATELET COUNT 349 K/MM3 (134-434); RBC 5.28 M/mm3 (4.00-5.60); RDW 13.3 % (11.9-15.9); WHITE BLOOD COUNT 10.6 K/mm3 (4.0-10.0)
[2020-10-08 13:52] LABS: CHLORIDE 103 mmol/L (98-107); POTASSIUM 4.1 mmol/L (3.5-5.1); SODIUM 139 mmol/L (136-145)
[2020-10-08 13:55] LABS: ANION GAP 8 MMOL/L (8-16); BLOOD UREA NITROGEN 13.7 mg/dL (7-18); CALCIUM 9.1 mg/dL (8.5-10.1); CO2 28 mmol/L (21-32); GLUCOSE,RANDOM 79 mg/dL (74-106)
[2020-10-08 13:56] LABS: ALBUMIN 3.4 g/dl (3.4-5.0)
[2020-10-08 13:58] LABS: SGPT/ALT 39 U/L (13-61)
[2020-10-08 13:59] LABS: SGOT/AST 41 U/L (15-37)
[2020-10-08 14:00] LABS: TOT PROT 8.4 g/dl (6.4-8.2)
[2020-10-08 14:01] LABS: ALK PHOS 138 U/L (45-117)
[2020-10-08 14:49] LABS: PLATELET ESTIMATE NORMAL
[2020-10-08 15:39] VITALS: BP 133/86; PULSE 93; TEMP 97.8
== END 2020-10-08 16:23 | disposition home or self-care (01) ==
LOC: JER 11:44
PROC: 3E033GC Introduction of Other Therapeutic Substance into Peripheral Vein, Percutaneous Approach (ICD-10-PCS; principal; 2020-10-08)
DX: R20.2 Paresthesia of skin (principal)
CPT/HCPCS: 36415; 70450-TC; 71046-TC-FY; 80053; 84484; 85025; 93005; 93010; 99285-25